=== PATIENT | male | born 2000 | race Caucasian/White ===

== ENCOUNTER → 2022-03-02 15:58 | Outpatient (CLI) | payer OTHER, SELFPAY ==
--- NOTE | 2022-03-02 | DI.MRI.S_ITS ---
PROCEDURE: MR KNEE RT WO CON INDICATIONS: RT KNEE PAIN TECHNIQUE: Noncontrast sagittal PD fast spin echo and T2 fast spin echo with fat saturation, sagittal 3-D FLASH with fat saturation; coronal T1 spin echo and PD fast spin echo with fat saturation, and axial PD fast spin echo with fat saturation through the knee. COMPARISON: None. FINDINGS: Image quality: Excellent. Menisci: Medial meniscus is partially detached posteriorly and there is mild T2 signal elevation at the posterior meniscal capsular junction of the posterior horn medial meniscus. There is truncation of the free edge of the anterior horn, body, and posterior horn of the lateral meniscus, with displacement of the bucket-handle fragment medially into the intercondylar notch. Cruciate ligaments: There is marked attenuation and mild posterior bowing of the anterior cruciate ligament. Posterior cruciate ligament is intact. Medial structures: The medial collateral ligament appears intact. Visualized portions of the pes anserinus tendons appear normal. By small amount of fluid signal intensity within the semimembranosus musculotendinous junction extending to the tibial insertion site. Small amount No abnormal bursal fluid. Lateral structures: The lateral collateral ligament, long and short heads of the biceps femoris tendon appear intact. The popliteus tendon appears normal. Iliotibial band appears normal. Anterior structures: The quadriceps and patellar tendons appear intact. Patellar alignment is normal. No femoral trochlear dysplasia or ventral trochlear prominence. No edema in the infrapatellar fat pad. Bones and cartilage: No displaced fracture. There is moderate ill-defined T2 signal elevation within the mid and anterior weight-bearing aspect of the medial femoral condyle and within the posterior weight-bearing aspect of the medial tibial plateau. Mild T2 signal elevation within the posterior weight-bearing aspect of the lateral tibial plateau is present. Joint space: There is a moderate knee joint effusion. No Aviles's cyst. Normal appearing synovial plicae are incidentally noted. IMPRESSION: 1. Partial-thickness anterior cruciate ligament tear. 2. Bucket-handle tear of lateral meniscus. 3. Meniscal capsular junction injury involving the posterior horn medial meniscus associated with partial detachment of the medial meniscus. 4. Knee joint effusion. 5. Partial-thickness tearing of the semimembranosus. Dictated by: Reyes Renee M.D. on 03/03/2022 at 8:27 Approved by: Reyes Renee M.D. on 03/03/2022 at 8:29
== END ==
DX: S83.511A Sprain of anterior cruciate ligament of right knee, initial encounter (principal); S83.251A Bucket-handle tear of lateral meniscus, current injury, right knee, initial encounter; S83.241A Other tear of medial meniscus, current injury, right knee, initial encounter; M25.561 Pain in right knee; M25.461 Effusion, right knee
CPT/HCPCS: 73721

== ENCOUNTER 2024-08-06 09:22 | Emergency (ER) | payer OTHER, SELFPAY ==
[2024-08-06 09:33] VITALS: BP 137/67; PULSE 83; RESP 16; TEMP 36.4; O2SAT 100; BMI 26.2
[2024-08-06 10:03] VITALS: BP 126/74; PULSE 74; O2SAT 100
--- NOTE | 2024-08-06 10:05 | PC.NURSE ---
Hives cover entire body. Raised welts noted to arms, legs, face, and torso. Pt says that there is some itching.
[2024-08-06 10:30] VITALS: BP 125/69; PULSE 65; O2SAT 99
--- NOTE | 2024-08-06 10:48 | ED_ITS ---
HPI - Skin/Abscess/Foreign Bdy General Chief complaint: Skin/Abscess/Foreign Body Stated complaint: hives all over body Time Seen by Provider: 08/06/24 10:48 Source: patient, RN notes reviewed and old records reviewed Mode of arrival: Ambulatory Limitations: no limitations History of Present Illness HPI narrative: 24-year-old male with no reported medical issues who presents with complaint of hives. Patient's symptoms started on Tuesday. He states they tried some new things throughout the day but no clear exacerbating factor. No new things had changed at home. Patient has hives on his neck torso and upper extremities down towards his hips. He states it has been sparing his legs. Quite itchy particularly when he touches it. Denies any fevers. No oropharyngeal involvement. No tightness in his throat. No chest pain or shortness of breath. No nausea or vomiting. No diarrhea. Patient has not had similar symptoms in the past. He states no daily medications. No known drug allergies. Was seen at [facility]. Received prednisone 40 mg he has had 2 days' worth and has been taking Benadryl extra-strength as needed. He states rash had resolved yesterday but then returned. Did take some Benadryl prior to coming and states the rash is not quite as intense is it was prior to arrival. Patient states no known drug allergies. Occasional tobacco, occasional alcohol, no recreational drug use. Sees primary care at the [facility]. Related Data Previous Rx's Medication Instructions Recorded prednisone 10 mg tablets in a dose See Rx Instructions PO .COMPLEX 08/06/24 pack #21 ea Allergies Allergy/AdvReac Type Severity Reaction Status Date / Time No Known Drug Allergies Allergy Verified 08/06/24 10:04 Review of Systems Review of Systems ROS Unobtainable: All systems reviewed & are unremarkable except as noted in HPI and below Exam Narrative Exam Narrative: GEN: well nourished, well appearing male, alert and oriented x 3, patient appears to be in mild distress. HEENT: Atraumatic, pupils are equal round reactive to light, extraocular movements are intact, nares are clear, TMs are clear with no fluid, there is no conjunctival pallor. Throat is clear without any exudates, erythema, tonsillar enlargement or uvular deviation, no facial droop HEART: Regular rate and rhythm without murmur, clicks, rubs. Pulses are equal in upper and lower extremities LUNGS:Lungs clear to auscultation, no wheezes, rales, crackles, chest moves symmetrically ABD:bowel sounds normal, soft, non-tender, no guarding, rebound, rigidity, no masses noted, no hepatosplenomegaly :No CVA tenderness MSCL: Non-tender, no muscle atrophy, muscles strength 5/5 upper and lower extremities, full range of motion, normal gait NEURO:CN 2-12 intact, sensation normal. SKIN: Patient has erythematous raised wheals on face and neck, torso and bilateral upper extremities. Initial Vital Signs Initial Vital Signs: Vital Signs Temperature 97.5 F L 08/06/24 09:33 Pulse Rate 83 08/06/24 09:33 Respiratory Rate 16 08/06/24 09:33 Blood Pressure 137/67 08/06/24 09:33 Pulse Oximetry 100 08/06/24 09:33 Oxygen Delivery Method Room Air 08/06/24 09:33 Course Orders Ordered: Discontinued Medications Methylprednisolone (Methylprednisolone 125 Mg/2 Ml Vial) 125 mg IV NOW ONE Stop: 08/06/24 11:16 Last Admin: 08/06/24 11:31 Dose: 125 mg Documented By: Vital Signs Vital signs: Vital Signs - 8 hr 08/06/24 10:30 08/06/24 10:30 08/06/24 11:00 Pulse Rate 65 66 Respiratory Rate 14 Blood Pressure 125/69 124/58 L Pulse Oximetry 99 98 Oxygen Delivery Method Room Air 08/06/24 11:00 08/06/24 11:41 08/06/24 12:00 Pulse Rate 54 L 65 Respiratory Rate Blood Pressure 117/67 Pulse Oximetry 97 97 Oxygen Delivery Method 08/06/24 12:00 Pulse Rate 65 Respiratory Rate 18 Blood Pressure Pulse Oximetry 97 Oxygen Delivery Method MDM - Skin/Abscess/Foreign Bdy MDM Narrative Medical decision making narrative: 24-year-old male with urticaria has not had similar symptoms in the past episode started Tuesday did resolve but then returned. He has been on oral prednisone 40 mg for 2 days has been taking Benadryl PRN. We will give a slightly higher dose of prednisone and taper down words asked patient to start taking Zyrtec twice daily. [place] and to continue to keep a log to see if there was any potential triggers. Patient has not had any oropharyngeal involvement. Discharge Plan Departure Patient Disposition: Home Clinical Impression: Urticaria Instructions: DI for Hives Activity Restrictions/Additional Instructions: Please follow up with primary care for recheck. Urticaria can happen for a variety of reasons sometimes allergic but sometimes can be for other causes. Please keep track of any potential triggers. I sent a tapering dose of prednisone. This was sent to [facility] in [place]. You can take Zyrtec [id number] 1 tablet twice daily for 5 days. You can continue with Benadryl 1-2 tablets every 6 hours as needed. Please return if you develop swelling of your lips, tongue or oropharynx, if you are having trouble breathing, new chest pain or shortness of breath, persistent vomiting, new swelling of your extremities, fevers, blisters that are opening or skin that is sloughing or other new or concerning changes. Prescriptions: New prednisone 10 mg tablets,dose pack See Rx Instructions .ROUTE .COMPLEX Qty: 21 0RF Rx Instructions: 6 tabs p.o. x1 day, then 5 tabs p.o. x1 day, then 4 tablets p.o. x1 day, then 3 tabs p.o. x1 day, then 2 tabs p.o. x1 day, then 1 tab p.o. x1 day Stand Alone Forms: Patient Portal/API/Survey, Work Release Note
[2024-08-06 11:00] VITALS: BP 124/58; PULSE 54; PULSE 66; RESP 14; O2SAT 97; O2SAT 98
[2024-08-06] MEDS: methylPREDNISolone 125 MG/2 ML VIAL IV (11:31)
[2024-08-06 11:41] VITALS: PULSE 65; O2SAT 97
[2024-08-06 12:00] VITALS: BP 117/67; PULSE 65; RESP 18; O2SAT 97
== END 2024-08-06 12:09 | disposition home or self-care (01) ==
PROVIDERS: Emergency Provider Emergency Medicine
DX: L50.9 Urticaria, unspecified (principal)
CPT/HCPCS: 96374; 99283; 99284; J2919